=== PATIENT | female | born 1980 | race Caucasian/White ===

== ENCOUNTER 2017-02-02 12:27 | Emergency (ER) | payer MEDICAID ==
[~2017-02-02] VITALS: Ht 154.9 cm; Wt 89.5 kg
[2017-02-02 12:33] VITALS: Ht 154.9 cm; Wt 89.5 kg
[2017-02-02 13:17] LABS: ADD SCAN DIFF NO
[2017-02-02 13:19] LABS: BASOPHILS % 0.3 % (0.0-2.0); EOSINOPHILS # 0.1 10^3/ul (0.0-0.5); EOSINOPHILS % 0.8 % (0.0-7.0); HEMOGLOBIN 14.1 g/dl (12.0-16.0); LYMPHOCYTES # 2.4 10^3/ul (0.8-2.9); LYMPHOCYTES % 20.4 % (15.0-51.0); MEAN CORPUSCULAR HEMOGLOBIN 33.1 pg (29.0-33.0); MEAN CORPUSCULAR HGB CONC 35.3 g/dl (32.0-37.0); MEAN CORPUSCULAR VOLUME 93.9 fl (82.0-101.0); MEAN PLATELET VOLUME 10.8 fl (7.4-10.4); MONOCYTE # 0.8 10^3/ul (0.3-0.9); MONOCYTES % 7.1 % (0.0-11.0); NEUTROPHIL # 8.4 10^3/ul (1.6-7.5); NEUTROPHILS % 71.1 % (39.0-77.0); PLATELET COUNT 309 10^3/UL (140-415); RED BLOOD COUNT 4.26 10^6/ul (4.20-5.40); RED CELL DISTRIBUTION WIDTH 12.4 % (11.5-14.5); WHITE BLOOD COUNT 11.8 10^3/ul (4.8-10.8)
--- NOTE | 2017-02-02 14:16 | RADRPT ---
PROCEDURE: US OB. CLINICAL INDICATION: . Evaluate size and dates. Vaginal bleeding. TECHNIQUE: Transabdominal imaging of the gravid uterus was performed. Images are reviewed on a hi gh-resolution PACS workstation. COMPARISON: None available FINDINGS: Intrauterine is identified. The crown-rump length equals 2.66 cm. The estimated gestatio nal age equals 9 weeks 3 days by ultrasound criteria. Normal cardiac activity is identified. No subchorionic hemorrhage is identified. No other acute abnormality is seen. The ovaries are remar kable for a small right ovarian cyst. The left ovary is not well visualized. IMPRESSION: 1. Single live intrauterine with an estimated gestational age of 9 weeks 3 days by ultras ound criteria and an estimated date of delivery of 09/04/2017. 2. No subchorionic hemorrhage identified. RPTAT: PP .John Vargas MD, MD Date Time Electronically viewed and signed by .John Vargas MD, MD on 02/02/2017 14:15 .B/
[2017-02-02 14:58] LABS: URINE BLOOD (Dip) POC 1+ (NEGATIVE)
[2017-02-02] MEDS ORDERED: METO10TA92 PO (15:14)
[2017-02-02] MEDS ORDERED: ACET325T33 PO (15:14)
[2017-02-02] MEDS ORDERED: BEN25 PO (15:14)
[2017-02-02] MEDS ORDERED: ACETAMINOPHEN 325 MG TAB PO ONE (15:30)
--- NOTE | 2017-02-02 15:45 | ERD ---
ER Documentation Chief Complaint Date/Time DATE: 02/02/17 TIME: 15:25 Chief Complaint vag bleed 8 wks preg, spotting x 2 days; sm bleeding this morning HPI This is a 36-year-old female complaining of spotting for 2 days with lower abdominal pain. Patient is with an estimated gestational age of 8 weeks. Patient states that she noticed a brown-colored vaginal discharge after wiping her when voiding . Today she noticed that it is bright red in color with a small amount of clot. Patient also had an episode of vomiting this morning but is non-bloody or nonbilious. Patient also complains of pain upon urination. Patient took Tylenol last night for symptom relief. She will takes vitamins. Denies any recent history of fever, diarrhea, constipation, headache. Last bowel movement was this morning. Medical and surgical history are unremarkable. ROS All systems reviewed and are negative except as per history of present illness. Medications Home Meds Active Scripts Diphenhydramine Hcl* (Benadryl*) 25 Mg Cap, 25 MG PO Q6 Y for ITCHING/RASH, #30 TAB Prov:WILBER DICK 02/02/17 Acetaminophen* (Tylenol*) 325 Mg Tablet, 2 TAB PO Q6 Y for PAIN AND OR ELEVATED TEMP, #20 TAB Prov:WILBER DICK 02/02/17 Metoclopramide* (Reglan*) 10 Mg Tablet, 10 MG PO Q6 Y for NAUSEA AND/OR VOMITING , #10 TAB Prov:WILBER DICK 02/02/17 Allergies Allergies: Coded Allergies: No Known Allergy (Verified , 06/24/13) PMhx/Soc History of Surgery: No Anesthesia Reaction: No Hx Neurological Disorder: No Hx Respiratory Disorders: No Hx Cardiac Disorders: No Hx Psychiatric Problems: No Hx Miscellaneous Medical Probl: No Hx Alcohol Use: No Hx Substance Use: No Hx Tobacco Use: No Physical Exam Vitals Vital Signs Date Time Temp Pulse Resp B/P Pulse Ox O2 Delivery O2 Flow Rate FiO2 02/02/17 12:33 99.4 100 18 137/67 97 Physical Exam Physical Exam CONST: Well-developed, well-nourished, in no acute distress. Nontoxic in appearance. HEENT: Atraumatic. Normal conjunctiva. EOM intact. TM intact. External ear is normal. Clear oropharnyx without erythema. No uvular deviation. Moist mucous membranes. Supple neck. No meningismus. No submandibular induration. RESP: Clear to auscultation bilaterally. No wheezing. CARDIO: Regular rate and rhythm, no murmurs. ABD: Tenderness in lower abdomen. Soft and nondistended.. Normal bowel sounds. No guarding or rigidity. No peritoneal signs. SKIN: No petechiae or rashes. BACK: No midline or flank tenderness. EXT: No cyanosis or edema. Distal pulses equal and bilateral. NEURO: Awake and alert, appropriate for age. Result Diagram: 02/02/17 1259 Results 24 hrs Laboratory Tests Test 02/02/17 12:59 02/02/17 14:58 White Blood Count 11.810^3/ul Red Blood Count 4.2610^6/ul Hemoglobin 14.1g/dl Hematocrit 40.0% Mean Corpuscular Volume 93.9fl Mean Corpuscular Hemoglobin 33.1pg Mean Corpuscular Hemoglobin Concent 35.3g/dl Red Cell Distribution Width 12.4% Platelet Count 78445^3/UL Mean Platelet Volume 10.8fl Neutrophils % 71.1% Lymphocytes % 20.4% Monocytes % 7.1% Eosinophils % 0.8% Basophils % 0.3% Nucleated Red Blood Cells % 0.0/100WBC Neutrophils # 8.410^3/ul Lymphocytes # 2.410^3/ul Monocytes # 0.810^3/ul Eosinophils # 0.110^3/ul Basophils # 0.010^3/ul Nucleated Red Blood Cells # 0.010^3/ul Beta HCG, Quantitative 78285.0mIU/ml Bedside Urine pH (LAB) 5.5 Bedside Urine Protein (LAB) Negative Bedside Urine Glucose (UA) Negative Bedside Urine Ketones (LAB) Negative Bedside Urine Blood 1+ Bedside Urine Nitrite (LAB) Negative Bedside Urine Leukocyte Esterase (L Negative Current Medications Medications (Trade) Dose Ordered Sig/Benjamin Route PRN Reason Start Time Stop Time Status Last Admin Dose Admin Acetaminophen (Tylenol Tab) 650 mg ONCE ONCE PO 02/02/17 15:30 02/02/17 15:31 DC 02/02/17 15:15 ROCEDURE: US OB. CLINICAL INDICATION: . Evaluate size and dates. Vaginal bleeding. TECHNIQUE: Transabdominal imaging of the gravid uterus was performed. Images are reviewed on a high-resolution PACS workstation. COMPARISON: None available FINDINGS: Intrauterine is identified. The crown-rump length equals 2.66 cm. The estimated gestational age equals 9 weeks 3 days by ultrasound criteria. Normal cardiac activity is identified. No subchorionic hemorrhage is identified. No other acute abnormality is seen. The ovaries are remarkable for a small right ovarian cyst. The left ovary is not well visualized. IMPRESSION: 1. Single live intrauterine with an estimated gestational age of 9 weeks 3 days by ultrasound criteria and an estimated date of delivery of 2016. 2. No subchorionic hemorrhage identified. RPTAT: PP .Wilber Vargas MD, MD Date Time Electronically viewed and signed by .Wilber Vargas MD, MD on 02/02/2017 14:15 Procedures/MDM EMERGENCY DEPARTMENT COURSE/MEDICAL DECISION MAKING This is a 36-year-old who comes to the emergency room secondary to complaints of vaginal bleeding for 2 days associated with lower abdominal pain. The patient was given Tylenol in the department. On re-evaluation, the patient' s symptoms improved. Lab results reviewed and showed elevated WBC of 11.8 and +1 [place] [address]. OB ultrasound was done and was interpreted by a radiologist. Results shows 1. Single live intrauterine with an estimated gestational age of 9 weeks 3 days by ultrasound criteria and an estimated date of delivery of 2016. 2. No subchorionic hemorrhage identified. Case was presented to Dr. Quintanilla and we both agreed that the patient is stable for discharge and follow up with her PEST CONTROL CHEMICAL TECHNICIAN in 1-2 days. My primary diagnosis is vaginal bleeding. Secondary diagnosis is abdominal pain Differential diagnoses considered but not limited to miscarriage, ovarian torsion, ectopic . Pt is hemodynamically stable upon reassessment. The patient was discharged for outpatient management with a prescription for Tylenol, Reglan and Benadryl. The patient was advised to followup with her OB/ MANAGER OF EXHIBITIONS AND COLLECTIONS in 1-2 days and to return to the Emergency Department if there are any new or worsening symptoms. The patient understood and agreed with the diagnosis, treatment and plan. Patient is stable for discharge at this time. Departure Diagnosis: Primary Impression: Vaginal bleeding in patient at less than 20 weeks ges... Additional Impression: Abdominal pain Abdominal location: lower abdomen, unspecified Qualified Code: R10.30 - Lower abdominal pain Condition: Stable Patient Instructions: Bleeding During Early , Abdominal Pain, Early Referrals: PEST CONTROL CHEMICAL TECHNICIAN [place] [address] [facility] [address] [place] [address] OFFICE FAX , [facility] [address] [place] [address] [facility] [address] [place] [address] DR AYALA, [facility] [address] [facility], [facility] [address] [address] [facility] [address] [place] [address] [facility] [address] [place] [address] [facility] [address] [address] [place] [address] DR PRIETO, BIPIN [address] [facility]. [address], [place] [address] DR KERN, [facility] [address] [place], [place] [id number] Additional Instructions: seguimiento con zhu ico gineclogo en 1-2 aguirre. Volver al Departamento de la emergencia inmediatamente si tiene cualquier s ntoma nuevo o que empeora. [employer] todos los medicamentos xiomy lo indique. WILBER DICK Feb 02, 2017 15:45
[2017-02-02 15:50] VITALS: BP 113/56; PULSE 85; RESP 17; TEMP 98.9
== END 2017-02-02 15:59 | disposition home or self-care (01) ==
LOC: FTE 12:27
DX: O20.9 Hemorrhage in early pregnancy, unspecified (principal); O26.891 Other specified pregnancy related conditions, first trimester; R10.30 Lower abdominal pain, unspecified; N89.8 Other specified noninflammatory disorders of vagina; Z3A.09 9 weeks gestation of pregnancy
CPT/HCPCS: 76801; 84702; 85025; 86900; 86901; Z7502; Z7610; 81003

== ENCOUNTER 2017-08-11 11:14 | Outpatient (CLI) | payer MEDICAID ==
[~2017-08-11] VITALS: Ht 160 cm; Wt 97.8 kg
[~2017-08-11 11:14] MED LIST: ACET325T33 PO; BEN25 PO; METO10TA92 PO
[2017-08-11] MEDS ORDERED: PREN-93 PO (11:32)
[2017-08-11 11:48] VITALS: BP 102/54; PULSE 88; RESP 20; Ht 160 cm; Wt 97.8 kg
--- NOTE | 2017-08-11 12:17 | RADRPT ---
PROCEDURE: OB ultrasound for biophysical profile CLINICAL INDICATION: Poor tone. TECHNIQUE: Multiple sonographic images of the pelvis were obtained. Transabdominal views of the g ravid uterus are available for review. The images were reviewed on a PACS workstation. COMPARISON: None FINDINGS: breathing movement = 2/2 tone = 2/2 motion = 2/2 LAURITA = 2/2 LAURITA = 10.4 cm Single live intrauterine with cardiac activity of 154 bpm. position is cephal ic. The placenta is anterior. IMPRESSION: 1. Single live intrauterine gestation. 2. Biophysical profile = 8/8. 3. LAURITA = 10.4 cm. RPTAT: HH .Trina Giron MD, MD Date Time Electronically viewed and signed by .Trina Giron MD, on 08/11/2017 12:17 .G/
--- NOTE | 2017-08-11 12:21 | RADRPT ---
PROCEDURE: US OB. CLINICAL INDICATION: Size and dates TECHNIQUE: Multiple sonographic images of the pelvis were obtained. Transabdominal imaging only w as performed. The images were reviewed on a PACS workstation. COMPARISON: No prior studies are available for comparison. FINDINGS: There is a single live intrauterine gestation. Cardiac activity is present with 157 beats per minut e. position is cephalic. Measurements were made in order to determine age. The results are as follows: BPD = 8.34 cm HC = 31.57 cm AC = 33.41 cm FL = 7.07 cm. Estimated gestational age of approximately 35 weeks 5 days. The estimated date of delivery is 09/10/2017. The EFW = 2927 g, 27 %ile. The placenta is anterior. There is no evidence for an abruption or placenta previa. There are no adnexal masses. IMPRESSION: 1. Single live intrauterine gestation of approximately 35 weeks 5 days, by ultrasound criteria. 2. The estimated date of delivery is 09/10/2017. 3. The estimated weight is 2927 g, 27 %ile. RPTAT: HH .Trina Giron MD, Date Time Electronically viewed and signed by .Trina Giron MD, on 08/11/2017 12:21 .G/
[2017-08-11 13:04] LABS: ADD UMIC YES; UR AMORPHOUS CRYSTAL FEW /HPF (NONE SEEN); UR ASCORBIC ACID NEGATIVE (NEGATIVE); UR BACTERIA FEW /HPF (NONE SEEN); UR BILIRUBIN (Dip) NEGATIVE (NEGATIVE); UR BLOOD (Dip) NEGATIVE (NEGATIVE); UR CLARITY SLIGHTLY CLOUDY (CLEAR); UR COLOR YELLOW (YELLOW); UR GLUCOSE (Dip) NEGATIVE (NEGATIVE); UR KETONES (Dip) NEGATIVE (NEGATIVE); UR LEUKOCYTE ESTERASE (Dip) 1+ Leu/ul (NEGATIVE); UR NITRITE (Dip) NEGATIVE (NEGATIVE); UR RBC 1 /HPF (0-5); UR SPECIFIC GRAVITY (Dip) 1.011 (1.003-1.030); UR SQUAMOUS EPITHELIAL CELL FEW /HPF (FEW); UR TOTAL PROTEIN (Dip) NEGATIVE (NEGATIVE); UR UROBILINOGEN (Dip) NEGATIVE (NEGATIVE)
--- NOTE | 2017-08-11 13:59 | PN ---
Triage Information Date/Time Reason for visit: Weeks of Gestation 37w 5d /Para Diabetes: gestational Diabetes management: diet controlled Objective Vital Signs Date Time Temp Pulse Resp B/P Pulse Ox O2 Delivery O2 Flow Rate FiO2 08/11/17 11:48 98.7 88 20 102/54 97 Room Air Heart Rate Comments reactive Contractions: None Results/Medications Results 24 hrs Laboratory Tests Test 08/11/17 07:30 08/11/17 12:32 Urine Color YELLOW Urine Clarity SLIGHTLY CLOUDY A Urine pH 6.0 Urine Specific [place] 1.011 Urine Ketones NEGATIVE Urine Nitrite NEGATIVE Urine Bilirubin NEGATIVE Urine Urobilinogen NEGATIVE Urine Leukocyte Esterase 1+ H Urine Microscopic RBC 1 Urine Microscopic WBC 2 Urine Squamous Epithelial Cells FEW Urine Amorphous Crystals FEW A Urine Bacteria FEW A Urine Hemoglobin NEGATIVE Urine Glucose NEGATIVE Urine Total Protein NEGATIVE Bedside Glucose 85 Imaging Results EFW 2927g c/w 27%, BPP 8/8, LAURITA 10.4cm Disposition: Discharge LUZ RIVAS Aug 11, 2017 13:59
== END 2017-08-11 13:00 | disposition home or self-care (01) ==
LOC: OBT 11:14 → L-D 11:14 → OBT 13:00
PROVIDERS: ATTEND Obstetrics & Gynecology
DX: O24.410 Gestational diabetes mellitus in pregnancy, diet controlled (principal); Z3A.37 37 weeks gestation of pregnancy
CPT/HCPCS: 76815; 76818; 81001; 82962; Z7500; G0463

== ENCOUNTER 2017-08-19 15:04 | Outpatient (CLI) | payer MEDICAID ==
[~2017-08-19] VITALS: Ht 157.5 cm; Wt 96.9 kg
[~2017-08-19 15:04] MED LIST changes: -ACET325T33 PO; -BEN25 PO; -METO10TA92 PO; +PREN-93 PO
[2017-08-19 15:28] VITALS: Ht 157.5 cm; Wt 96.9 kg
[2017-08-19 15:29] VITALS: BP 119/72; PULSE 86; RESP 18
--- NOTE | 2017-08-19 16:47 | RADRPT ---
PROCEDURE: US OB biophysical profile. CLINICAL INDICATION: decreased movements TECHNIQUE: Multiple sonographic images of the pelvis were obtained. The images were reviewed on a PACS workstation. COMPARISON: 08/11/17 FINDINGS: There is a single viable intrauterine gestation. Cardiac activity is present with 134 beats per min zulma. There is a vertex presentation. The placenta is anterior. There is no evidence of placental abruption. There is a normal amount of amniotic fluid with an LAURITA = 10.1 cm. Biophysical profile: movement 2/2 tone 2/2. breathing 2/2 LAURITA 2/2 Total 06/10 RPTAT: AA . IMPRESSION: Normal biophysical profile. . .Boone Quinones MD, MD Date Time Electronically viewed and signed by .Boone Quinones MD, MD on 08/19/2017 16:46 .S/
--- NOTE | 2017-08-19 17:04 | TRIAGE ---
OB Triage Datetime Report Generated by CPN: 08/19/2017 17:04 Datetime: 08/19/2017 16:20 Stage of : OB Triage Maternal Assessment Level of Consciousness: Fully Conscious Labor Evaluation Frequency: 0 Monitor Mode: External Resting Tone Payne: Relaxed Heart Rate FHR Baseline Rate: 145 Monitor Mode: External US Variability: Moderate 6-25 bpm Accelerations: 15X15 Decelerations: None Category: Category I Pain Assessment Pain Scale: 0 Pain Goal: 3 Membrane Status: Intact Vaginal Bleeding: None Datetime: 08/19/2017 15:34 Vaginal Exam Dilatation (cms): 1.5 Effacement (%): 50 Station: -3 Exam By: karin Vaginal Bleeding: None Cervix, Consistency: Moderate Cervix, Position: Posterior Datetime: 08/19/2017 15:23 Assessment Type: Triage Maternal Assessment Level of Consciousness: Fully Conscious DTR's/Clonus: DTRs 2+; No Clonus Headache: Denies Blurred Vision: No Respiratory Effort: Unlabored; Regular Rhythm; Equal Expansion Breath Sounds, Left: Clear and Equal Breath Sounds, Right: Clear and Equal Nausea/Vomiting: Denies RUQ Epigastric Pain: Denies Lower Extremities Edema: None Degree: None Upper Extremities Edema: None Degree: None Facial Edema: None Fall Risk Assessment History of Falling: (0) No Secondary Diagnosis: (0) No Ambulatory Aid: (0) Bedrest/Nurse Assist IV Therapy: (0) No Gait: (0) Normal/Bedrest/Immobile Mental Status: (0) Oriented to Own Ability Fall Score: 0 Fall Risk Score Definition: No Risk: No action required Datetime: 08/19/2017 15:21 Time of Arrival: 08/19/2017 15:00 EGA: 38.6 Arrived By: Ambulatory Arrived From: Home Chief Complaint: pt here c/o UC'S. PT HAS GDM. Movement: Present Contractions: Irregular Time Contractions Began: 08/19/2017 02:00 Rupture of Membranes: Denies Vaginal Bleeding: None Vaginal Discharge: Denies Recent Sexual Intercouse: Denies Abdominal Trauma: Not Applicable Patient Complaints: Contractions; Cramping; Back Pain Time Provider Notified: 08/19/2017 15:50 Provider Notified: KEITH Initial Plan: EFM/BPP/SVE Datetime: 08/19/2017 15:18 Monitor Mode: External Monitor Mode: External US Datetime: 08/11/2017 12:41 Stage of : OB Triage Labor Evaluation Frequency: occasional Monitor Mode: External Duration (sec)2399: 50-90 Quality: Mild Pattern: Normal: <= 5 Contractions in 10 Minutes Resting Tone Payne: Relaxed Contraction Comments: pt denies uc's Heart Rate FHR Baseline Rate: 135 Monitor Mode: External US Variability: Moderate 6-25 bpm Accelerations: 15X15 Decelerations: None Category: Category I Datetime: 08/11/2017 12:32 Bedside Blood Glucose: 85 Datetime: 08/11/2017 11:30 Maternal Assessment Level of Consciousness: Fully Conscious DTR's/Clonus: DTRs 2+; No Clonus Headache: Denies Blurred Vision: No Respiratory Effort: Unlabored; Regular Rhythm; Equal Expansion Breath Sounds, Left: Clear and Equal Breath Sounds, Right: Clear and Equal Nausea/Vomiting: Denies RUQ Epigastric Pain: Denies Facial Edema: None Fall Risk Assessment History of Falling: (0) No Secondary Diagnosis: (0) No Ambulatory Aid: (0) Bedrest/Nurse Assist IV Therapy: (0) No Gait: (0) Normal/Bedrest/Immobile Mental Status: (0) Oriented to Own Ability Fall Score: 0 Fall Risk Score Definition: No Risk: No action required Datetime: 08/11/2017 11:27 Time of Arrival: 08/11/2017 11:07 EGA: 37.5 Arrived By: Ambulatory Arrived From: Home Chief Complaint: RX FOR NST AND BPP for macrosomia pt reports vaginal pressiure 02/10 Movement: Present Contractions: Denies/Absent Vaginal Bleeding: None Vaginal Discharge: Denies Recent Sexual Intercouse: Denies Additional Patient Complaints: bg 85mg/dl random Time Provider Notified: 08/11/2017 12:34 Provider Notified: dr. copeland Initial Plan: NST/ bpp Datetime: 08/11/2017 11:25 Stage of : OB Triage Assessment Type: Triage Maternal Assessment Level of Consciousness: Fully Conscious DTR's/Clonus: DTRs 2+; No Clonus Headache: Denies Blurred Vision: No Respiratory Effort: Unlabored; Regular Rhythm; Equal Expansion Breath Sounds, Left: Clear and Equal Breath Sounds, Right: Clear and Equal Nausea/Vomiting: Denies RUQ Epigastric Pain: Denies Lower Extremities Edema: None Degree: None Upper Extremities Edema: None Degree: None Facial Edema: None Temperature Route: Axillary Fall Risk Assessment History of Falling: (0) No Secondary Diagnosis: (0) No Ambulatory Aid: (0) Bedrest/Nurse Assist IV Therapy: (0) No Gait: (0) Normal/Bedrest/Immobile Mental Status: (0) Oriented to Own Ability Fall Score: 0 Fall Risk Score Definition: No Risk: No action required Pain Assessment Pain Scale: 4 Pain Presence: Intermittent Pain Type: Pressure Pain Location: Perineum Pain Goal: 2 Pain Relief Measures: Comfort Measures Pain Assessment Comments: Vaginal Exam Dilatation (cms): 2.0 Effacement (%): 40 Station: -3 Exam By: tez
--- NOTE | 2017-08-19 17:42 | PN ---
Triage Information Date/Time Reason for visit: Uterine contractions Weeks of Gestation 38+6 /Para 5/4 Diabetes: none Hypertention: none Objective Vital Signs Date Time Temp Pulse Resp B/P Pulse Ox O2 Delivery O2 Flow Rate FiO2 08/19/17 15:29 99.0 86 18 119/72 99 Room Air Heart Rate: 140's Contractions: >10 Minutes Apart Disposition: Discharge Assessment/Plan Patient is going top be [id number] tomorrow per her PMD Precautions discussed with patient PINKY AGUIRRE M.D. Aug 19, 2017 17:42
== END 2017-08-19 17:10 | disposition home or self-care (01) ==
LOC: OBT 15:04 → L-D 15:05 → OBT 17:10
PROVIDERS: ATTEND Obstetrics & Gynecology
DX: O62.9 Abnormality of forces of labor, unspecified (principal); Z3A.38 38 weeks gestation of pregnancy
CPT/HCPCS: 76818; Z7500; G0463

== ENCOUNTER 2017-08-20 22:00 | Inpatient (IN) | payer MEDICAID ==
[2017-08-20] MEDS ORDERED: DEXTROSE 5%-LR 1,000 ML IV SCH (22:35)
[2017-08-20] MEDS ORDERED: LACTATED RINGER'S 1,000 ML IV SCH ×2 (22:35)
[2017-08-20] MEDS ORDERED: LACTATED RINGER'S 1,000 ML IV PRN (22:40)
[2017-08-20] MEDS ORDERED: OXYTOCIN 30 UNITS/LR 500 ML IV PRN (23:00)
[2017-08-20] MEDS ORDERED: BUTORPHANOL 2 MG INJ IV PRN ×2 (23:00)
[2017-08-20] MEDS ORDERED: OXYTOCIN 30 UNITS/LR 500 ML IV SCH ×3 (23:00)
[2017-08-20] MEDS ORDERED: METHYLERGONOVINE 0.2 MG INJ IM PRN (23:00)
[2017-08-20] MEDS ORDERED: CARBOPROST 250 MCG INJ IM PRN (23:00)
[2017-08-20] MEDS ORDERED: OXYCODONE/ASPIRIN (4.88/325) TAB PO PRN (23:00)
[2017-08-20] MEDS ORDERED: IBUPROFEN 600 MG TAB PO PRN (23:00)
[2017-08-20] MEDS ORDERED: LIDOCAINE 1% (MPF) 30 ML INJ INJ PRN (23:00)
[2017-08-20] MEDS ORDERED: MISOPROSTOL 200 MCG TAB PR PRN (23:00)
[2017-08-21 00:59] LABS: BASOPHILS % 0.3 % (0.0-2.0); EOSINOPHILS # 0.1 10^3/ul (0.0-0.5); EOSINOPHILS % 0.9 % (0.0-7.0); HEMATOCRIT 38.1 % (37.0-47.0); MEAN CORPUSCULAR HEMOGLOBIN 33.1 pg (29.0-33.0); MEAN CORPUSCULAR HGB CONC 34.1 g/dl (32.0-37.0); MEAN CORPUSCULAR VOLUME 96.9 fl (82.0-101.0); MEAN PLATELET VOLUME 12.1 fl (7.4-10.4); MONOCYTE # 1.1 10^3/ul (0.3-0.9); MONOCYTES % 8.4 % (0.0-11.0); NEUTROPHIL # 8.3 10^3/ul (1.6-7.5); NEUTROPHILS % 65.7 % (39.0-77.0); PLATELET COUNT 223 10^3/UL (140-415); RED BLOOD COUNT 3.93 10^6/ul (4.20-5.40); RED CELL DISTRIBUTION WIDTH 13.3 % (11.5-14.5); WHITE BLOOD COUNT 12.7 10^3/ul (4.8-10.8)
[2017-08-21 04:10] LABS: INR 0.99; PROTIME 13.1 Sec (12.2-14.2)
--- NOTE | 2017-08-21 05:31 | HP ---
Date/Time of Note Date/Time of Note DATE: 08/21/17 TIME: 05:30 OB - History Hx of Present Free Text/Dictation INDUCTION ELECTIVE Care: Good Care Ultrasounds: Normal mid trimester US Obstetrical Complications: None Medical Complications: None Past Family/Social History * Past Medical, Surgical, Family and Obstetric Histories reviewed from chart. OB Admission Exam Physical Exam HEENT: WNL Heart: Rhythm Normal Lungs: Clear, Equal Abdomen: WNL Extremities: Normal Reflexes: Normal Cervical Dilatation: 4cm Effacement: 75% Station: -1 Membranes: Ruptured Amniotic Fluid: Clear Heart Rate: 130's Accelerations: Accelerations Present Decelerations: No Decelerations Varibility: Moderate Contractions on Admission: 6-10 Minutes Apart Intensity: Moderate Last 72 hourBlood Glucose Bedside Glucose - 72 Hours Test 08/20/17 22:30 08/21/17 01:59 Bedside Glucose 88mg/dL (70-220) 103mg/dL (70-220) Last 72 hours Lab Results CBC & BMP 08/21/17 00:30 OB Assessment/Plan Reason for admission: induction of labor Plan: Induction Induction Method: per Pitocin Protocol ODESSA PARKER MD Aug 21, 2017 05:31
--- NOTE | 2017-08-21 07:59 | LDN ---
Date/Time of Note Date/Time of Note DATE: 08/21/17 TIME: 07:58 Delivery Summary term preg. NSD Placenta Delivered: Spontaneously Meconium: none Episiotomy: No Anesthesia type: None Estimated blood loss: 300 Sponge & Needle done & correct: Yes All needle counts correct: Yes Any foreign bodies felt in the: No Problems: ODESSA PARKER MD Aug 21, 2017 07:59
[2017-08-21] MEDS: LACTATED RINGER'S 1,000 ML IV* SCH ×2 (09:09→17:09)
[2017-08-21] MEDS: OXYTOCIN 30 UNITS/LR 500 ML IV SCH ×2 (09:09→13:09)
[2017-08-21 09:30] VITALS: BP 124/64; PULSE 81
[2017-08-21] MEDS ORDERED: ZOLPIDEM 5 MG TAB PO PRN (09:30)
[2017-08-21] MEDS ORDERED: METHYLERGONOVINE 0.2 MG INJ IM PRN (09:30)
[2017-08-21] MEDS ORDERED: LANOLIN 7 GM TUBE TOP PRN (09:30)
[2017-08-21] MEDS ORDERED: MISOPROSTOL 200 MCG TAB PR PRN (09:30)
[2017-08-21] MEDS ORDERED: ACETAMINOPHEN 325 MG TAB PO PRN (09:30)
[2017-08-21] MEDS ORDERED: CARBOPROST 250 MCG INJ IM PRN (09:30)
[2017-08-21] MEDS ORDERED: WITCH HAZEL/GLYCERIN PAD PR PRN (09:30)
[2017-08-21] MEDS ORDERED: BENZOCAINE 20% 56 ML SPRAY TOP PRN (09:30)
[2017-08-21] MEDS ORDERED: OXYTOCIN 30 UNITS/LR 500 ML IV PRN (09:30)
[2017-08-21] MEDS ORDERED: DIPHENHYDRAMINE 25 MG CAP PO PRN (09:30)
[2017-08-21] MEDS: HYDROCODONE/APAP (5/325) TAB PO PRN ×2 (10:40→21:17)
[2017-08-21] MEDS: IBUPROFEN 800 MG TAB PO SCH ×3 (12:26→23:36)
[2017-08-21 16:00] VITALS: BP 109/76; PULSE 66; RESP 18
[2017-08-21 19:45] VITALS: BP 117/70; PULSE 94; RESP 17
[2017-08-21] MEDS: SENNA/DOCUSATE NA (8.6MG/50MG) TAB PO PRN (21:18)
[2017-08-21 23:36] VITALS: BP 115/70; PULSE 95; RESP 17
[2017-08-22 04:00] VITALS: BP 112/61; PULSE 97; RESP 18
[2017-08-22] MEDS: IBUPROFEN 800 MG TAB PO SCH ×4 (05:25→23:53)
[2017-08-22 08:00] VITALS: BP 112/64; PULSE 92; RESP 18
[2017-08-22 08:55] LABS: BASOPHILS % 0.3 % (0.0-2.0); EOSINOPHILS # 0.2 10^3/ul (0.0-0.5); EOSINOPHILS % 1.8 % (0.0-7.0); HEMATOCRIT 35.6 % (37.0-47.0); HEMOGLOBIN 11.7 g/dl (12.0-16.0); LYMPHOCYTES # 2.9 10^3/ul (0.8-2.9); LYMPHOCYTES % 23.6 % (15.0-51.0); MEAN CORPUSCULAR HEMOGLOBIN 32.1 pg (29.0-33.0); MEAN CORPUSCULAR HGB CONC 32.9 g/dl (32.0-37.0); MEAN CORPUSCULAR VOLUME 97.5 fl (82.0-101.0); MEAN PLATELET VOLUME 11.4 fl (7.4-10.4); MONOCYTES % 8.5 % (0.0-11.0); NEUTROPHILS % 65.1 % (39.0-77.0); PLATELET COUNT 196 10^3/UL (140-415); RED BLOOD COUNT 3.65 10^6/ul (4.20-5.40); RED CELL DISTRIBUTION WIDTH 13.5 % (11.5-14.5); WHITE BLOOD COUNT 12.2 10^3/ul (4.8-10.8)
[2017-08-22] MEDS: SENNA/DOCUSATE NA (8.6MG/50MG) TAB PO PRN (09:34)
--- NOTE | 2017-08-22 15:03 | QN ---
Documentation Comment PPD#1 is stable afebrile No VB +BM +voids VS stable Gen NAD Abd soft NT ND Genitalia No blood at perinium --->discharge plan tomorrow PINKY AGUIRRE M.D. Aug 22, 2017 15:03
[2017-08-22 16:10] VITALS: BP 101/57; PULSE 92; RESP 16
--- NOTE | 2017-08-22 16:13 | DS ---
Date/Time of Note Date/Time of Note DATE: 08/22/17 TIME: 16:13 Discharge Summary Admission/Discharge Info Admit Date/Time Aug 20, 2017 at 22:00 Discharge Date/Time Discharge Diagnosis term Patient Condition: Stable Hospital Course unremarkable Home Meds Reported Medications Vit No.124/Iron/FA ( Vitamin Tablet) 1 Each Tablet, 1 EACH PO, TAB 08/11/17 Primary Care Provider Elena Thompson MD Pending Labs Laboratory Tests Test 08/22/17 07:07 08/22/17 08:04 Lab Scanned Report REFERENCE [id number] White Blood Count 12.210^3/ul (4.8-10.8) Red Blood Count 3.6510^6/ul (4.20-5.40) Hemoglobin 11.7g/dl (12.0-16.0) Hematocrit 35.6% (37.0-47.0) Mean Corpuscular Volume 97.5fl (82.0-101.0) Mean Corpuscular Hemoglobin 32.1pg (29.0-33.0) Mean Corpuscular Hemoglobin Concent 32.9g/dl (32.0-37.0) Red Cell Distribution Width 13.5% (11.5-14.5) Platelet Count 91162^3/UL (140-415) Mean Platelet Volume 11.4fl (7.4-10.4) Neutrophils % 65.1% (39.0-77.0) Lymphocytes % 23.6% (15.0-51.0) Monocytes % 8.5% (0.0-11.0) Eosinophils % 1.8% (0.0-7.0) Basophils % 0.3% (0.0-2.0) Nucleated Red Blood Cells % 0.0/100WBC (0.0-0.0) Neutrophils # 8.010^3/ul (1.6-7.5) Lymphocytes # 2.910^3/ul (0.8-2.9) Monocytes # 1.010^3/ul (0.3-0.9) Eosinophils # 0.210^3/ul (0.0-0.5) Basophils # 0.010^3/ul (0.0-0.1) Nucleated Red Blood Cells # 0.010^3/ul (0.0-0.0) ODESSA PARKER MD Aug 22, 2017 16:13
--- NOTE | 2017-08-22 16:14 | PD.PPDC ---
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
[2017-08-22] MEDS: HYDROCODONE/APAP (5/325) TAB PO PRN (17:03)
[2017-08-22 20:30] VITALS: BP 107/67; PULSE 85; RESP 18
[2017-08-22] MEDS: MAGNESIUM HYDROXIDE 30ML CUP PO PRN (23:55)
[2017-08-23 04:00] VITALS: BP 109/52; PULSE 83; RESP 18
[2017-08-23] MEDS: IBUPROFEN 800 MG TAB PO SCH ×2 (05:48→12:34)
[2017-08-23 08:25] VITALS: BP 116/61; PULSE 84; RESP 16
[2017-08-23] MEDS: MAGNESIUM HYDROXIDE 30ML CUP PO PRN (08:37)
[2017-08-23] MEDS: SENNA/DOCUSATE NA (8.6MG/50MG) TAB PO PRN (08:37)
[2017-08-23] MEDS ORDERED: VARICELLA VACCINE LIVE/PF 1,350 UNIT/0.5 ML ML SC* ONE (09:00)
[2017-08-23] MEDS ORDERED: MEASLES,MUMPS,RUBELLA VACCINE INJ SC* ONE (09:00)
[2017-08-23] MEDS ORDERED: DIPHTH/TET/ACEL PERTUSS (ADULT) 0.5 ML VIAL IM* ONE (09:00)
== END 2017-08-23 15:00 | disposition home or self-care (01) | DRG 775 ==
LOC: L-D 22:00 → PP1 08-21 09:45
PROVIDERS: ADMIT Obstetrics & Gynecology; ATTEND Obstetrics & Gynecology
PROC: 10E0XZZ Delivery of Products of Conception, External Approach (ICD-10-PCS; principal; 2017-08-21)
PROC: 3E0P3VZ Introduction of Hormone into Female Reproductive, Percutaneous Approach (ICD-10-PCS; 2017-08-21)
DX: O80 Encounter for full-term uncomplicated delivery (principal); Z37.0 Single live birth; Z3A.38 38 weeks gestation of pregnancy
CPT/HCPCS: 82962; 85025; 85610; 85730; 86592; 86900; 86901; 87340; 90715; 90716; J0595; J2590; J7120; J7121

== ENCOUNTER 2017-08-29 12:25 | Emergency (ER) | payer MEDICAID ==
[~2017-08-29] VITALS: Wt 90.5 kg
--- NOTE | 2017-08-29 12:52 | ERD ---
ER Documentation Chief Complaint Chief Complaint LOWER PELVIC PAIN X2DAYS SEEN IN ER/OB INFORMED SHE HAS RETAINED PLACENTA HPI 36-year-old female, status post normal vaginal spontaneous delivery on August 21, 2017, presents to the emergency department complaining of 5 days with worsening of abdominal pain worse on the right side. The patient was seen in [place] yesterday and was discharged with a prescription for cephalexin and Cytotec, the patient was told that she had some retained products of conception. The pain is sharp, located in the right lower quadrant , 7/10. Denies purulent lochia, mild vaginal bleeding ROS SYSTEMIC symptoms: No fever, no chills, no night sweats EYE symptoms: No eyesight problems. OTOLARYNGEAL symptoms: No hearing loss. CARDIOVASCULAR symptoms: No chest pain or discomfort, no palpitations. PULMONARY symptoms: No dyspnea, no cough, no wheezing. GASTROINTESTINAL symptoms: Right lower quadrant abdominal pain, no nausea, no vomiting SKIN no rashes MUSCULOSKELETAL symptoms: No arthralgias, no muscle aches. NEUROLOGY symptoms: No headache, no confusion, no syncope, no numbness or tingling. All systems reviewed and are negative except as per history of present illness. Medications Home Meds Active Scripts Hydrocodone/Acetaminophen ([place] 5-325 Tablet) 1 Each Tablet, 1 TAB PO Q6H Y for PAIN, #7 TAB Prov:YEN CARDENAS MD 08/29/17 Reported Medications Vit No.124/Iron/FA ( Vitamin Tablet) 1 Each Tablet, 1 EACH PO, TAB 08/11/17 Allergies Allergies: Coded Allergies: No Known Allergy (Verified , 06/24/13) PMhx/Soc History of Surgery: No Anesthesia Reaction: No Hx Neurological Disorder: No Hx Respiratory Disorders: No Hx Cardiac Disorders: No Hx Psychiatric Problems: No Hx Miscellaneous Medical Probl: No Hx Alcohol Use: No Hx Substance Use: No Hx Tobacco Use: No Physical Exam Vitals Vital Signs Date Time Temp Pulse Resp B/P Pulse Ox O2 Delivery O2 Flow Rate FiO2 08/29/17 12:28 99.1 86 20 136/76 97 Physical Exam Const: Alert, hydrated,seems in mild distress due to pain Head: Atraumatic Eyes: Normal Conjunctiva ENT: Normal External Ears, Nose and Mouth. Neck: Full range of motion..~ No meningismus. Resp: Clear to auscultation bilaterally Cardio: Regular rate and rhythm, no murmurs Abd: Soft, tender, non distended. Uterus firm. Normal bowel sounds Pelvic: Minimal normal lochia, uterus firm, no malodorous discharge, no CMT Result Diagram: 08/29/17 1328 08/29/17 1328 Results 24 hrs Laboratory Tests Test 08/29/17 13:28 08/29/17 14:01 White Blood Count 7.910^3/ul Red Blood Count 4.5810^6/ul Hemoglobin 14.7g/dl Hematocrit 44.0% Mean Corpuscular Volume 96.1fl Mean Corpuscular Hemoglobin 32.1pg Mean Corpuscular Hemoglobin Concent 33.4g/dl Red Cell Distribution Width 13.2% Platelet Count 12667^3/UL Mean Platelet Volume 10.4fl Neutrophils % 62.1% Lymphocytes % 27.4% Monocytes % 7.5% Eosinophils % 2.0% Basophils % 0.5% Nucleated Red Blood Cells % 0.0/100WBC Neutrophils # 4.910^3/ul Lymphocytes # 2.210^3/ul Monocytes # 0.610^3/ul Eosinophils # 0.210^3/ul Basophils # 0.010^3/ul Nucleated Red Blood Cells # 0.010^3/ul Sodium Level 142mmol/L Potassium Level 4.3mmol/L Chloride Level 109mmol/L Carbon Dioxide Level 22mmol/L Anion Gap 15 Blood Urea Nitrogen 13mg/dl Creatinine 0.65mg/dl Glucose Level 87mg/dl Calcium Level 10.2mg/dl Total Bilirubin 0.4mg/dl Direct Bilirubin 0.00mg/dl Indirect Bilirubin 0.4mg/dl Aspartate Amino Transf (AST/SGOT) 30IU/L Alanine Aminotransferase (ALT/SGPT) 32IU/L Alkaline Phosphatase 162IU/L Total Protein 8.6g/dl Albumin 4.3g/dl Globulin 4.30g/dl Albumin/Globulin Ratio 1.00 Lipase 102U/L Urine Color YELLOW Urine Clarity CLEAR Urine pH 5.0 Urine Specific [place] 1.009 Urine Ketones NEGATIVEmg/dL Urine Nitrite NEGATIVEmg/dL Urine Bilirubin NEGATIVEmg/dL Urine Urobilinogen NEGATIVEmg/dL Urine Leukocyte Esterase 1+Misael/ul Urine Microscopic RBC 2/HPF Urine Microscopic WBC 9/HPF Urine Squamous Epithelial Cells FEW/HPF Urine Bacteria FEW/HPF Urine Hemoglobin 3+mg/dL Urine Glucose NEGATIVEmg/dL Urine Total Protein NEGATIVEmg/dl Current Medications Medications (Trade) Dose Ordered Sig/Benjamin Route PRN Reason Start Time Stop Time Status Last Admin Dose Admin Sodium Chloride (NS) 1,000 ml @ 1,000 mls/hr Q1H STAT IV 08/29/17 12:58 08/29/17 13:57 DC 08/29/17 13:30 Ketorolac Tromethamine (Toradol) 15 mg ONCE STAT IV 08/29/17 12:58 08/29/17 13:04 DC 08/29/17 14:01 Patient: URSULA ESPINAL : 1980 Age: 36 Sex: F MR #: [id number] DOS: 08/29/17 0000 Ordering MD: YEN CARDENAS MD Location: [facility] Room/Bed: PROCEDURE: US Pelvis. CLINICAL INDICATION: Pelvic pain. on the 08/21/2017. TECHNIQUE: The pelvis was evaluated with transabdominal and transvaginal sonography in the axial and sagittal planes. COMPARISON: No prior study is available for comparison. FINDINGS: Uterus: Enlarged consistent with the state measuring 14.4 x 7.9 x 9.8 cm. Endometrium: Diffusely heterogeneous with solid and fluid components measuring 44.3 mm. Right ovary: 3.1 x 1.6 x 2.9 cm. Left ovary: 3.7 x 2.5 x 2.7 cm. Uterine masses: None. Ovarian masses: None. Color Doppler and pulsed Doppler sonography demonstrate normal flow to the ovaries. Other pelvic masses: None. Free fluid: None. IMPRESSION: 1. Enlarged uterus consistent with the state. 2. Diffusely heterogeneous endometrium with solid and fluid components measuring 44.3 mm. This may indicate retained products of conception. 3. Otherwise unremarkable study. RPTAT: QQ .Faizan Guzman MD, Date Time Electronically viewed and signed by .Faizan Guzman MD, on 08/29/2017 14:08 Procedures/MDM 36 y/o female, presents c/o of worsening of pain after finding out yesterday that she may have some retained POC. The patient was treated yesterday at [facility] for UTI and discharged home with a Rx for cephalexin and Cytotec. The patient hasn't started the medications because she believes that "the uterus needs to be cleaned". Careful physical exam was performed by me including pelvic exam which was adequate for her state without clinical evidence of endometritis or abnormal bleeding. CBC showed normal leukocyte count and hemoglobin. Ultrasound revealed an endometrium of approx 44mm which could be still in the normal range for . The patient has an appointment on Friday for follow up. During her course in ED, the patient remained afebrile and stable, refers that the pain resolved. The patient will be DC home with precautions and f/u in3 days with OB, she was encouraged to start taking the cephalexin and Cytotec prescribed yesterday. The case was discussed over the phone with OB information resources manager who agrees with management. Departure Diagnosis: Primary Impression: Abdominal cramps Additional Impression: Status post normal delivery Condition: Stable YEN CARDENAS MD Aug 29, 2017 12:52
--- NOTE | 2017-08-29 12:52 | ERD ---
ER Documentation Chief Complaint Chief Complaint LOWER PELVIC PAIN X2DAYS SEEN IN ER/OB INFORMED SHE HAS RETAINED PLACENTA HPI 36-year-old female, status post normal vaginal spontaneous delivery on August 21, 2017, presents to the emergency department complaining of 5 days with worsening of abdominal pain worse on the right side. The patient was seen in [place] yesterday and was discharged with a prescription for cephalexin and Cytotec, the patient was told that she had some retained products of conception. The pain is sharp, located in the right lower quadrant , 7/10. Denies purulent lochia, mild vaginal bleeding ROS SYSTEMIC symptoms: No fever, no chills, no night sweats EYE symptoms: No eyesight problems. OTOLARYNGEAL symptoms: No hearing loss. CARDIOVASCULAR symptoms: No chest pain or discomfort, no palpitations. PULMONARY symptoms: No dyspnea, no cough, no wheezing. GASTROINTESTINAL symptoms: Right lower quadrant abdominal pain, no nausea, no vomiting SKIN no rashes MUSCULOSKELETAL symptoms: No arthralgias, no muscle aches. NEUROLOGY symptoms: No headache, no confusion, no syncope, no numbness or tingling. All systems reviewed and are negative except as per history of present illness. Medications Home Meds Active Scripts Hydrocodone/Acetaminophen ([place] 5-325 Tablet) 1 Each Tablet, 1 TAB PO Q6H Y for PAIN, #7 TAB Prov:YEN CARDENAS MD 08/29/17 Reported Medications Vit No.124/Iron/FA ( Vitamin Tablet) 1 Each Tablet, 1 EACH PO, TAB 08/11/17 Allergies Allergies: Coded Allergies: No Known Allergy (Verified , 06/24/13) PMhx/Soc History of Surgery: No Anesthesia Reaction: No Hx Neurological Disorder: No Hx Respiratory Disorders: No Hx Cardiac Disorders: No Hx Psychiatric Problems: No Hx Miscellaneous Medical Probl: No Hx Alcohol Use: No Hx Substance Use: No Hx Tobacco Use: No Physical Exam Vitals Vital Signs Date Time Temp Pulse Resp B/P Pulse Ox O2 Delivery O2 Flow Rate FiO2 08/29/17 12:28 99.1 86 20 136/76 97 Physical Exam Const: Alert, hydrated,seems in mild distress due to pain Head: Atraumatic Eyes: Normal Conjunctiva ENT: Normal External Ears, Nose and Mouth. Neck: Full range of motion..~ No meningismus. Resp: Clear to auscultation bilaterally Cardio: Regular rate and rhythm, no murmurs Abd: Soft, tender, non distended. Uterus firm. Normal bowel sounds Pelvic: Minimal normal lochia, uterus firm, no malodorous discharge, no CMT Result Diagram: 08/29/17 1328 08/29/17 1328 Results 24 hrs Laboratory Tests Test 08/29/17 13:28 08/29/17 14:01 White Blood Count 7.910^3/ul Red Blood Count 4.5810^6/ul Hemoglobin 14.7g/dl Hematocrit 44.0% Mean Corpuscular Volume 96.1fl Mean Corpuscular Hemoglobin 32.1pg Mean Corpuscular Hemoglobin Concent 33.4g/dl Red Cell Distribution Width 13.2% Platelet Count 02924^3/UL Mean Platelet Volume 10.4fl Neutrophils % 62.1% Lymphocytes % 27.4% Monocytes % 7.5% Eosinophils % 2.0% Basophils % 0.5% Nucleated Red Blood Cells % 0.0/100WBC Neutrophils # 4.910^3/ul Lymphocytes # 2.210^3/ul Monocytes # 0.610^3/ul Eosinophils # 0.210^3/ul Basophils # 0.010^3/ul Nucleated Red Blood Cells # 0.010^3/ul Sodium Level 142mmol/L Potassium Level 4.3mmol/L Chloride Level 109mmol/L Carbon Dioxide Level 22mmol/L Anion Gap 15 Blood Urea Nitrogen 13mg/dl Creatinine 0.65mg/dl Glucose Level 87mg/dl Calcium Level 10.2mg/dl Total Bilirubin 0.4mg/dl Direct Bilirubin 0.00mg/dl Indirect Bilirubin 0.4mg/dl Aspartate Amino Transf (AST/SGOT) 30IU/L Alanine Aminotransferase (ALT/SGPT) 32IU/L Alkaline Phosphatase 162IU/L Total Protein 8.6g/dl Albumin 4.3g/dl Globulin 4.30g/dl Albumin/Globulin Ratio 1.00 Lipase 102U/L Urine Color YELLOW Urine Clarity CLEAR Urine pH 5.0 Urine Specific [place] 1.009 Urine Ketones NEGATIVEmg/dL Urine Nitrite NEGATIVEmg/dL Urine Bilirubin NEGATIVEmg/dL Urine Urobilinogen NEGATIVEmg/dL Urine Leukocyte Esterase 1+Misael/ul Urine Microscopic RBC 2/HPF Urine Microscopic WBC 9/HPF Urine Squamous Epithelial Cells FEW/HPF Urine Bacteria FEW/HPF Urine Hemoglobin 3+mg/dL Urine Glucose NEGATIVEmg/dL Urine Total Protein NEGATIVEmg/dl Current Medications Medications (Trade) Dose Ordered Sig/Benjamin Route PRN Reason Start Time Stop Time Status Last Admin Dose Admin Sodium Chloride (NS) 1,000 ml @ 1,000 mls/hr Q1H STAT IV 08/29/17 12:58 08/29/17 13:57 DC 08/29/17 13:30 Ketorolac Tromethamine (Toradol) 15 mg ONCE STAT IV 08/29/17 12:58 08/29/17 13:04 DC 08/29/17 14:01 Patient: URSULA ESPINAL : 1980 Age: 36 Sex: F MR #: [id number] DOS: 08/29/17 0000 Ordering MD: YEN CARDENAS MD Location: FTE Room/Bed: PROCEDURE: US Pelvis. CLINICAL INDICATION: Pelvic pain. on the 08/21/2017. TECHNIQUE: The pelvis was evaluated with transabdominal and transvaginal sonography in the axial and sagittal planes. COMPARISON: No prior study is available for comparison. FINDINGS: Uterus: Enlarged consistent with the state measuring 14.4 x 7.9 x 9.8 cm. Endometrium: Diffusely heterogeneous with solid and fluid components measuring 44.3 mm. Right ovary: 3.1 x 1.6 x 2.9 cm. Left ovary: 3.7 x 2.5 x 2.7 cm. Uterine masses: None. Ovarian masses: None. Color Doppler and pulsed Doppler sonography demonstrate normal flow to the ovaries. Other pelvic masses: None. Free fluid: None. IMPRESSION: 1. Enlarged uterus consistent with the state. 2. Diffusely heterogeneous endometrium with solid and fluid components measuring 44.3 mm. This may indicate retained products of conception. 3. Otherwise unremarkable study. RPTAT: QQ .Faizan Guzman MD, Date Time Electronically viewed and signed by .Faizan Guzman MD, on 08/29/2017 14:08 Procedures/MDM 36 y/o female, presents c/o of worsening of pain after finding out yesterday that she may have some retained POC. The patient was treated yesterday at [facility] for UTI and discharged home with a Rx for cephalexin and Cytotec. The patient hasn't started the medications because she believes that "the uterus needs to be cleaned". Careful physical exam was performed by me including pelvic exam which was adequate for her state without clinical evidence of endometritis or abnormal bleeding. CBC showed normal leukocyte count and hemoglobin. Ultrasound revealed an endometrium of approx 44mm which could be still in the normal range for . The patient has an appointment on Friday for follow up. During her course in ED, the patient remained afebrile and stable, refers that the pain resolved. The patient will be DC home with precautions and f/u in3 days with OB, she was encouraged to start taking the cephalexin and Cytotec prescribed yesterday. The case was discussed over the phone with OB child care education coordinator who agrees with management. Departure Diagnosis: Primary Impression: Abdominal cramps Additional Impression: Status post normal delivery Condition: Stable YEN CARDENAS MD Aug 29, 2017 12:52
[2017-08-29] MEDS ORDERED: SOD CHLORIDE 0.9% 1,000 ML IV STA (12:58)
[2017-08-29] MEDS ORDERED: KETOROLAC 15 MG INJ IV STA (12:58)
--- NOTE | 2017-08-29 14:08 | RADRPT ---
PROCEDURE: US Pelvis. CLINICAL INDICATION: Pelvic pain. on the 08/21/2017. TECHNIQUE: The pelvis was evaluated with transabdominal and transvaginal sonography in the axial a nd sagittal planes. COMPARISON: No prior study is available for comparison. FINDINGS: Uterus: Enlarged consistent with the state measuring 14.4 x 7.9 x 9.8 cm. Endometrium: Diffusely heterogeneous with solid and fluid components measuring 44.3 mm. Right ovary: 3.1 x 1.6 x 2.9 cm. Left ovary: 3.7 x 2.5 x 2.7 cm. Uterine masses: None. Ovarian masses: None. Color Doppler and pulsed Doppler sonography demonstrate normal flow to the ova carol. Other pelvic masses: None. Free fluid: None. IMPRESSION: 1. Enlarged uterus consistent with the state. 2. Diffusely heterogeneous endometrium with solid and fluid components measuring 44.3 mm. This may indicate retained products of conception. 3. Otherwise unremarkable study. RPTAT: QQ .Faizan Guzman MD, MD Date Time Electronically viewed and signed by .Faizan Guzman MD, on 08/29/2017 14:08 .R/
[2017-08-29] MEDS ORDERED: HYDR-906 PO (17:07)
== END 2017-08-29 17:21 | disposition home or self-care (01) ==
LOC: FTE 12:25
DX: O90.89 Other complications of the puerperium, not elsewhere classified (principal); R10.2 Pelvic and perineal pain
CPT/HCPCS: 76856; 80053; 81001; 83690; 85025; 87040; 87086; J1885; J7030; 36415; 96374